=== PATIENT | female | born 1970 | race African-American/Black ===

== ENCOUNTER 2018-01-18 12:17 | Emergency (ER) | payer OTHER ==
[2018-01-18 12:40] VITALS: TEMP 97.6; BMI 29.1
--- NOTE | 2018-01-18 14:27 | PDOC ---
History of Present Illness - General History Source: Patient Exam Limitations: No Limitations - History of Present Illness Initial Comments: 01/18/18 16:01 The patient is a 47 year old female with a significant past medical history of HTN (on enalapril) who presents to the ED s/p elevated blood pressure earlier today. The patient states she was at a dentist appointment earlier today to get a tooth extraction. During her visit at the dentist, the patient had her blood pressure taken and it read too high to read and was not able to get her tooth extracted and was sent over to the ED. Upon arrival to the ED, the patients blood pressure was 190/88 and she only complains of tooth pain. Patient states she did not eat anything today and also reports slight dizziness. She states her dizziness is now resided secondary to taking pain medication. Denies fever or chills. Denies chest pain or shortness of breath. Denies abdominal pain, nausea, vomiting, or diarrhea. Denies dysuria or change in urinary output. Pt denies any headache, current dizziness, vision changes, numbness/tingling/weakness. Pt states she is supposed to take her enalapril twice daily, but usually forgets in the evening. Surgical hx: Cholecystectomy <Maya Villanueva - Last Filed: 01/18/18 16:01> <Sumeet Wahl - Last Filed: 01/18/18 17:53> - General Chief Complaint: Blood Pressure Problem Stated Complaint: BLOOD PRESSURE PROBLEM Time Seen by Provider: 01/18/18 13:58 Past History <Maya Villanueva - Last Filed: 01/18/18 16:01> - Past Medical History Anemia: No Asthma: No Cancer: No Cardiac Disorders: No CVA: No COPD: No CHF: No DVT: No Dementia: No Diabetes: No Dialysis: No GI Disorders: No Disorders: No HTN: Yes Hypercholesterolemia: No Liver Disease: No Seizures: No Thyroid Disease: No - Surgical History Cholecystectomy: Yes - Suicide/Smoking/Psychosocial Hx Smoking Status: No Smoking History: Never smoked Have you smoked in the past 12 months: No Number of Cigarettes Smoked Daily: 0 Information on smoking cessation initiated: No Hx Alcohol Use: No Drug/Substance Use Hx: No Substance Use Type: None Hx Substance Use Treatment: No <Sumeet Wahl - Last Filed: 01/18/18 17:53> - Past Medical History Allergies/Adverse Reactions: Allergies Allergy/AdvReac Type Severity Reaction Status Date / Time No Known Drug Allergies Allergy Verified 08/13/15 09:38 Home Medications: Ambulatory Orders Cyclobenzaprine HCl [Flexeril] 5 mg PO BID #14 tablet 08/13/15 Enalapril Maleate 10 mg PO BID 08/13/15 Enalapril Maleate [Vasotec] 10 mg PO BID #60 tablet 08/13/15 Naproxen [Naprosyn -] 500 mg PO BID #14 tablet 08/13/15 Nitrofurantoin Monohyd/M-Cryst [Macrobid -] 100 mg PO BID #14 capsule 08/13/15 Review of Systems - Review of Systems Able to Perform ROS?: Yes Comments:: 01/18/18 16:02 CONSTITUTIONAL: No reported: Fever, Chills, Diaphoresis, Generalized Weakness, Malaise, Loss of Appetite HEENT: + tooth pain No reported: Rhinorrhea, Nasal Congestion, Throat Pain, Throat Swelling, Difficulty Swallowing, Mouth Swelling, Ear Pain, Eye Pain, Visual Changes CARDIOVASCULAR: + high blood pressure No reported: Chest Pain, Syncope, Palpitations, Irregular Heart Rate, Peripheral Edema RESPIRATORY: No reported: Cough, Shortness of Breath, SOB with Exertion, Orthopnea, Wheezing , Stridor, Hemoptysis GASTROINTESTINAL: No reported: Abdominal pain, Abdominal Distension, Nausea, Vomiting, Diarrhea, Constipation, Melena, Hematochezia GENITOURINARY: No reported: Dysuria, Frequency, Urgency, Hesitancy, Flank Pain, Genital Pain MUSCULOSKELETAL: No reported: Myalgia, Arthralgia, Joint Swelling, Back pain, Neck Pain SKIN: No reported: Rash, Itching, Pallor HEMEATOLOGIC/IMMUNOLOGIC: No reported: Easy Bleeding, Easy Bruising, Lymphadenopathy, Frequent infections ENDOCRINE: No reported: Unexplained Weight Gain, Unexplained Weight Loss, Heat Intolerance , Cold Intolerance NEUROLOGIC:+ dizziness (resolved) No reported: Headache, Focal Weakness, Paresthesias, Vertigo, Unsteady Gait, Seizure, Mental Status Changes, Incontinence PSYCHIATRIC: No reported: Anxiety, Depression All Other Systems: Reviewed and Negative <Maya Villanueva - Last Filed: 01/18/18 16:01> *Physical Exam - Vital Signs Last Vital Signs Temp Pulse Resp BP Pulse Ox 97.6 F 70 20 197/101 100 01/18/18 12:36 01/18/18 15:21 01/18/18 15:21 01/18/18 15:21 01/18/18 12:36 - Physical Exam Comments: 01/18/18 16:03 GENERAL: The patient is awake, alert, and fully oriented, Nontoxic - in no acute distress. HEAD: Normocephalic, atraumatic. EYES: extraocular movements intact, sclera anicteric, conjunctiva clear. NECK: Normal range of motion, supple LUNGS: Breath sounds equal, clear to auscultation bilaterally. No wheezes, no rhonchi, no rales. HEART: Regular rate and rhythm, without murmur, rub or gallop. ABDOMEN: Soft, nontender, No guarding, no rebound.No CVA tenderness EXTREMITIES: Normal range of motion, no edema. No cyanosis. No erythema, or tenderness. NEUROLOGICAL: No facial assymetry, Normal speech, PSYCH: Normal mood, normal affect. SKIN: Warm, Dry, normal turgor, <Villanueva,Andrys - Last Filed: 01/18/18 16:01> - Vital Signs Last Vital Signs Temp Pulse Resp BP Pulse Ox 97.6 F 65 20 159/115 100 01/18/18 12:36 01/18/18 12:36 01/18/18 12:36 01/18/18 12:36 01/18/18 12:36 <Sumeet Wahl - Last Filed: 01/18/18 17:53> ED Treatment Course - LABORATORY CBC & Chemistry Diagram: 01/18/18 16:59 01/18/18 16:59 <Sumeet Wahl - Last Filed: 01/18/18 17:53> Medical Decision Making - Medical Decision Making 01/18/18 14:27 47y F hx of htn, went to the dentist to have her teeth extracted, found her BP was elevated at the dentist office. Pt otherwyse asypmtomatic. Wilmer vaughn cp, sob, lightheadedness, abd pain, back pain, leg swelling. pts exam unremarkable will giv her a dose of her enalapril 01/18/18 15:48 case denisha Mattehws agreew ith our management requests basic labs will have her take enalapril 10mg BID for the next few days and fu wit [facility] for blood pressure mangaement 01/18/18 17:51 labs unremarkable cr borderline at 1.3 will dc with pmd fu awaitng repeat bp <Sumeet Wahl - Last Filed: 01/18/18 17:53> *DC/Admit/Observation/Transfer - Attestations Scribe Attestion: 01/18/18 16:03 Documentation prepared by Maya Villanueva, acting as medical psychotherapist for Sumeet Wahl MD <Maya Villanueva - Last Filed: 01/18/18 16:01> - Discharge Dispostion Decision to Admit order: No <Sumeet Wahl - Last Filed: 01/18/18 17:53> Diagnosis at time of Disposition: Hypertension Qualifiers: Hypertension type: unspecified Qualified Code(s): I10 - Essential (primary) hypertension - Discharge Dispostion Disposition: HOME Condition at time of disposition: Improved - Referrals Referrals: Jaimee Felton MD [Staff Physician] - - Patient Instructions Printed Discharge Instructions: DI for High Blood Pressure Additional Instructions: Return to the emergency department immediately with ANY new, persistent or worsening symptoms. You MUST call and follow up with your doctor tomorrow for further evaluation of your symptoms. Results were discussed with you. Please make sure your doctor reviews the results of your emergency evaluation. If you had any xrays during your visit, it was read preliminarily by myself, a Radiologist will review it and if there are any additional findings we will call you. Print Language: JAPANESE - Post Discharge Activity
[2018-01-18] MEDS ORDERED: ENALAPRIL MALEATE 10 MG TABLET (FP) PO SCH (15:30)
[2018-01-18] MEDS ORDERED: ENALAPRIL MALEATE 5 MG TABLET (FP) ONE (15:54)
[2018-01-18 17:13] LABS: BASO % 0.9 % (0-2.0); EOS % 1.1 % (0-4.5); HEMATOCRIT 35.3 % (32.4-45.2); HEMOGLOBIN 11.6 GM/dL (10.7-15.3); LYMPH % 35.3 % (8-40); MCH 27.2 pg (25.7-33.7); MCHC 32.9 g/dl (32.0-36.0); MEAN CELL VOLUME 82.7 fl (80-96); MEAN PLT VOLUME 8.1 fl (7.5-11.1); MONO % 4.9 % (3.8-10.2); NEUT % 57.8 % (42.8-82.8); PLATELET COUNT 269 K/MM3 (134-434); RBC 4.27 M/mm3 (3.60-5.2); RDW 15.2 % (11.6-15.6); WHITE BLOOD COUNT 7.4 K/mm3 (4.0-10.0)
[2018-01-18 17:25] LABS: ALBUMIN 3.7 g/dl (3.4-5.0); ALK PHOS 89 U/L (45-117); ANION GAP 9 (8-16); BILIRUBIN,TOTAL 0.4 mg/dL (0.2-1.0); BLOOD UREA NITROGEN 13 mg/dL (7-18); CALCIUM 8.9 mg/dL (8.5-10.1); CHLORIDE 106 mmol/L (98-107); CO2 26 mmol/L (21-32); CREATININE 1.3 mg/dL (0.55-1.02); GLUCOSE,RANDOM 118 mg/dL (74-106); POTASSIUM 3.8 mmol/L (3.5-5.1); SGOT/AST 19 U/L (15-37); SGPT/ALT 39 U/L (12-78); SODIUM 141 mmol/L (136-145)
[2018-01-18] MEDS ORDERED: HYDROCHLOROTHIAZIDE 25 MG TABLET (FP) PO ONE (19:11)
[2018-01-18] MEDS ORDERED: cloNIDine HCL 0.1 MG TABLET PO ONE (19:11)
[2018-01-18] MEDS ORDERED: cloNIDine HCL 0.1 MG TABLET ONE (19:25)
[2018-01-18] MEDS ORDERED: HYDROCHLOROTHIAZIDE 25 MG TABLET (FP) ONE (19:25)
[2018-01-18 19:32] VITALS: BP 201/98; PULSE 59
[2018-01-18] MEDS ORDERED: IBUPROFEN 400 MG TABLET (FP) PO ONE ×2 (20:36→21:28)
--- NOTE | 2018-01-18 21:37 | PDOC ---
*Physical Exam - Vital Signs Last Vital Signs Temp Pulse Resp BP Pulse Ox 97.6 F 59 L 17 201/98 100 01/18/18 12:36 01/18/18 19:31 01/18/18 19:31 01/18/18 19:31 01/18/18 19:31 ED Treatment Course - LABORATORY CBC & Chemistry Diagram: 01/18/18 16:59 01/18/18 16:59 - ADDITIONAL ORDERS Additional order review: Laboratory Results 01/18/18 16:59 Sodium 141 Potassium 3.8 Chloride 106 Carbon Dioxide 26 Anion Gap 9 BUN 13 Creatinine 1.3 H Creat Clearance w eGFR 44.29 Random Glucose 118 H Calcium 8.9 Total Bilirubin 0.4 AST 19 ALT 39 Alkaline Phosphatase 89 Total Protein 8.0 Albumin 3.7 01/18/18 16:59 RBC 4.27 MCV 82.7 MCHC 32.9 RDW 15.2 MPV 8.1 Neutrophils % 57.8 Lymphocytes % 35.3 D Monocytes % 4.9 Eosinophils % 1.1 Basophils % 0.9 - Medications Given in the ED: ED Medications Discontinued Medications Generic Name Dose Route Start Last Admin Trade Name Jeffreyq PRN Reason Stop Dose Admin Clonidine 0.2 mg 01/18/18 19:11 01/18/18 19:30 Catapres - PO 01/18/18 19:12 0.2 mg ONCE ONE Administration Hydrochlorothiazide 25 mg 01/18/18 19:11 01/18/18 19:30 Hctz - PO 01/18/18 19:12 25 mg ONCE ONE Administration Medical Decision Making - Medical Decision Making 01/18/18 21:36 Repeat blood pressure 126/76, her pulse is 54 Impression essential hypertension, toothache. Plan follow up with dentists and see your primary care physician about your blood pressure medication *DC/Admit/Observation/Transfer Diagnosis at time of Disposition: Hypertension Qualifiers: Hypertension type: unspecified Qualified Code(s): I10 - Essential (primary) hypertension - Discharge Dispostion Disposition: HOME Condition at time of disposition: Improved - Referrals Referrals: Jaimee Felton MD [Staff Physician] - - Patient Instructions Printed Discharge Instructions: DI for High Blood Pressure Additional Instructions: Return to the emergency department immediately with ANY new, persistent or worsening symptoms. You MUST call and follow up with your doctor tomorrow for further evaluation of your symptoms. Results were discussed with you. Please make sure your doctor reviews the results of your emergency evaluation. If you had any xrays during your visit, it was read preliminarily by myself, a Radiologist will review it and if there are any additional findings we will call you. Print Language: [place] - Post Discharge Activity Forms/Work/School Notes: Back to Work
== END 2018-01-18 21:50 | disposition home or self-care (01) ==
LOC: JER 12:17
DX: I10 Essential (primary) hypertension (principal)
CPT/HCPCS: 36415; 80053; 85025; 99283-25; J0735

== ENCOUNTER 2018-06-23 22:32 | Emergency (ER) | payer OTHER ==
[2018-06-23 22:50] VITALS: BP 171/98; PULSE 60; TEMP 97.6; BMI 22.6
== END 2018-06-24 01:21 | disposition left against medical advice (07) ==
LOC: JER 22:32
DX: Z53.21 Procedure and treatment not carried out due to patient leaving prior to being seen by health care provider (principal)
CPT/HCPCS: 99281-25